=== PATIENT | female | born 1965 | race American Indian/Alaskan Native ===

== ENCOUNTER 2019-01-22 06:44 | Day surgery (SDC) | payer BC, MEDICARE ==
[2019-01-22] MEDS ORDERED: WATER FOR IRRIG STERILE IR ONE (07:20)
--- NOTE | 2019-01-22 07:56 | Anesthesia Day of Surgery ---
Anesthesia Day of Surgery - Day of Surgery Patient Examined: Yes Patient H&P Reviewed: Yes Patient is NPO: Yes Beta Blockers: No Cardiac Clearance: No
--- NOTE | 2019-01-22 07:58 | Anesthesia Consultation ---
Anesthesia Consult and Med Hx Date of service: 01/15/19 - Airway Anesthetic Teeth Evaluation: Good ROM Head & Neck: Adequate Mental/Hyoid Distance: Adequate Mallampati Class: Class III Intubation Access Assessment: Good - Pulmonary Exam CTA: Yes - Cardiac Exam Cardiac Exam: No Murmur - Pre-Operative Health Status ASA Pre-Surgery Classification: ASA3 Proposed Anesthetic Plan: MAC - Pulmonary Hx Asthma: Yes - Hematic Hx Anemia: Yes - Additional Comments Anesthesia Medical History Comments: [place] Disease and received solumedrol this as as per Dr Fontanez
[2019-01-22] MEDS ORDERED: NACL 0.9% 1000 ML 1,000 ML IV SCH (08:00)
[2019-01-22] MEDS ORDERED: DIPRIVAN 10 MG/ML IV ONE (08:20)
[2019-01-22] MEDS ORDERED: XYLOCAINE 2% INFILTRATI ONE (08:20)
[2019-01-22] MEDS ORDERED: VERSED ONE (08:20)
--- NOTE | 2019-01-22 08:34 | History and Physical Report ---
HISTORY OF PRESENT ILLNESS: This is a 54-year-old female with an underlying history of adrenal insufficiency, who is on steroids. She has been having persistent abdominal pain and discomfort and may have an associated peptic ulcer disease. She gives a prior history of maryjane esophagitis, for which she was treated. Because of her GI symptoms, she is to have an EGD done. This case was discussed with her admissions consultant and she had suggested that the patient receive 100 mg of IV Solu-Medrol prior to the procedure, which she has received. ALLERGIES: No known allergies. SOCIAL HISTORY: Denies history of smoking or alcohol use. No cardiac issues and possibly no flu shots. PHYSICAL EXAMINATION: VITAL SIGNS: She is afebrile, blood pressure 104/67, pulse is 65, height is 5 feet 4 inches, weight is 213. HEENT: Shows no JVD. LUNGS: Show reduced breath sounds. CARDIOVASCULAR: Grossly normal. ABDOMEN: Shows epigastric tenderness. Bowel sounds present. EXTREMITIES: No pedal edema. NEUROLOGIC: The patient is otherwise alert and oriented. ASSESSMENT: History of adrenal insufficiency with steroid use, possible peptic ulcer disease, epigastric pain and abdominal pain, prior history of maryjane esophagitis. PLAN: To do an EGD at [facility] on 01/22/2019. JOB# [id number] CHEYENNE/DUSTIN
--- NOTE | 2019-01-22 08:45 | Procedure Note ---
Date of procedure: 01/22/18 Pre-op diagnosis: Abdominal Pain Post-op diagnosis: other (Duodenal Ulcer (second portion)/Gastric Ulcer (antrum)/Gastritis and Gastric Erosion/ Mild, Distal Esophagitis/R/O Celiac Disease) Procedure: EGD with Biopsy Anesthesia: MAC Surgeon: RODGER THOMAS Estimated blood loss: minimal Pathology: list Specimen disposition: to lab Condition: stable Disposition: same day (Treat PPI. Avoid aspirin and NSAID for 5 days and follow up in 1 to 2 weeks ([phone]).)
--- NOTE | 2019-01-22 09:03 | Operative Report ---
PROCEDURE: EGD with biopsy. INDICATIONS: This is a 54-year-old -[place] female with an underlying history of adrenal insufficiency for which she has to take high dose steroids. She has had a prior history of [place] esophagitis on EGD done a little over a year ago. Lately, she has been complaining of epigastric pain and discomfort. EGD was done to assess for the problem. DESCRIPTION OF PROCEDURE: Procedure was done after getting informed consent with MAC anesthesia. Instrument was passed through the hypopharynx into the esophagus, which showed some mild distal esophagitis. The stomach showed an antral ulcer. Photodocumentation was obtained. Biopsy had been done from the ulcer as well as from the gastric antrum and gastric body to rule out for H. pylori and atrophic gastritis. The pylorus was patent. The duodenum in the first portion and second appeared normal. Second part showed a duodenal ulcer, unusual place for an ulcer and photodocumentation and biopsy was obtained from there. Additional biopsy was obtained from the normal part of the second part of the duodenum to rule out for possible celiac disease. There was minimal bleeding from the biopsy sites and no complications with the procedure. ASSESSMENT: Abdominal pain, gastric ulcer, duodenal ulcer in the second portion, mild distal esophagitis, gastritis, and gastric erosion. Again, there was minimal bleeding from the procedure and no complications associated with the procedure. The patient will be asked to avoid aspirin and aspirin-related products for the next few days and follow up in the office in 1-2 weeks' time. Further treatment adjustment will be according to the biopsy findings, the patient will be treated with PPI. Nicole MORTON was in the room throughout the entirety of the procedure. JOB# [id number] CHEYENNE/DUSTIN
[2019-01-22 09:33] VITALS: BP 136/78
== END 2019-01-22 06:45 | disposition home or self-care (01) ==
LOC: GIO 06:44
DX: K29.50 Unspecified chronic gastritis without bleeding (principal); K21.0 Gastro-esophageal reflux disease with esophagitis; B37.81 Candidal esophagitis; K26.9 Duodenal ulcer, unspecified as acute or chronic, without hemorrhage or perforation; K31.89 Other diseases of stomach and duodenum; J45.909 Unspecified asthma, uncomplicated; M06.9 Rheumatoid arthritis, unspecified; D64.9 Anemia, unspecified; Z98.890 Other specified postprocedural states; Z79.82 Long term (current) use of aspirin; Z90.49 Acquired absence of other specified parts of digestive tract; Z90.710 Acquired absence of both cervix and uterus; Z79.899 Other long term (current) drug therapy
CPT/HCPCS: 43239; 82962; 88305; 88342; 96374; J1720; J2250; J2704; J7030

== ENCOUNTER 2019-03-19 09:06 | Day surgery (SDC) | payer BC, MEDICARE ==
--- NOTE | 2019-03-19 10:43 | Anesthesia Day of Surgery ---
Anesthesia Day of Surgery - Day of Surgery Patient Examined: Yes Patient H&P Reviewed: Yes Patient is NPO: Yes
--- NOTE | 2019-03-19 10:48 | Anesthesia Consultation ---
Anesthesia Consult and Med Hx Date of service: 03/19/19 - Airway Anesthetic Teeth Evaluation: Good ROM Head & Neck: Adequate Mental/Hyoid Distance: Adequate Mallampati Class: Class III Intubation Access Assessment: Probably Good - Pre-Operative Health Status ASA Pre-Surgery Classification: ASA3 Proposed Anesthetic Plan: MAC - Pulmonary Hx Asthma: Yes - Cardiovascular System Hx Hypertension: No (hypotension) - Central Nervous System Hx Neuromuscular Disorder: Yes (fibromyalgia, rheumatoid arthritis) Hx Seizures: Yes (last in 2016-controlled with meds) - Gastrointestinal Hx Ulcer: Yes Hx Gastroesophageal Reflux Disease: Yes - Hematic Hx Anemia: Yes - Other Systems Hx Obesity: Yes - Additional Comments Anesthesia Medical History Comments: Addisons Disease, on steroids. Hydrocortisone 100mg [address] Dr[address] Fontanez
[2019-03-19] MEDS ORDERED: NACL 0.9% 1000 ML 1,000 ML IV SCH (11:00)
[2019-03-19] MEDS ORDERED: DIPRIVAN 10 MG/ML IV ONE (11:01)
[2019-03-19] MEDS ORDERED: VERSED ONE (11:01)
[2019-03-19] MEDS ORDERED: XYLOCAINE 1% 20 mL ONE (11:01)
--- NOTE | 2019-03-19 11:29 | Procedure Note ---
Date of procedure: 03/19/19 Pre-op diagnosis: H/O Gastric and Duodenal Ulcer/ H/O [place]'s Disease Post-op diagnosis: other (Persistent Gastric Ulcer/ Healed Duodenal Ulcer/ Gastoparesis/Moderate,Distal Ersoive Esophagitis/ Patent Pylorus) Procedure: EGD with Biopsy Anesthesia: MAC Surgeon: RODGER THOMAS Estimated blood loss: minimal Pathology: list Specimen disposition: to lab Condition: stable Disposition: same day (Avoid aspirin and NSAID for 5 days. Treat with PPI and Reglan and follow up in 1 to 2 weeks ([phone]).)
[2019-03-19 12:01] VITALS: BP 119/67
--- NOTE | 2019-04-13 11:30 | Operative Report ---
PROCEDURE: EGD with biopsy INDICATIONS: This is a 54-year-old -[place] female who has had a history of partial bowel obstruction that has been treated by conservative measures. 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 She had been having some abdominal pain, prior history of gastric ulcer, underwent an EGD because of persistence of abdominal pain and to see whether the ulcer was still persisting. This was done at [facility] on 03/19/2019 with assistance of Anesthesia and the GI lab team. DESCRIPTION OF PROCEDURE: Instrument was passed through the hypopharynx into the esophagus, which showed some moderate erosive esophagitis. There was some evidence of gastroparesis. The pylorus was patent. The duodenum showed normal mucosa. Previously, the patient had a duodenal ulcer, which appears to have healed. The stomach, however, showed persistence of gastric ulcer, which is smaller than before, but is persisting because of the usage of high dosage of steroids. Biopsy was done from the gastric antrum as well as from the esophagus to assess for gastric antrum as well as the gastric body to assess for the ulcer to see if there is any associated H. pylori and from the distal esophagus to assess the severity of the erosive esophagitis. There was minimal bleeding associated with the procedure. No complications associated with the procedure. ASSESSMENT: History of gastric ulcer and duodenal ulcer. The duodenal ulcer is healed. There is persistence of the gastric ulcer, it was smaller than before, history of [place]'s disease with the usage of high dosage of steroids, moderate erosive esophagitis, gastroparesis, patent pylorus. PLAN: Plan is to treat the patient with PPI and Reglan. Avoid aspirin and aspirin-related products. The patient is to follow up in the office in 1-2 weeks' time. Procedure was done with assistance of the GI lab team, which included the GI finishing lab technician as well as a tech including the distance learning technician. JOB# [id number] CHEYENNE/DUSTIN
== END 2019-03-19 09:07 | disposition home or self-care (01) ==
LOC: GIO 09:06
DX: K29.50 Unspecified chronic gastritis without bleeding (principal); K21.0 Gastro-esophageal reflux disease with esophagitis; K31.89 Other diseases of stomach and duodenum; K52.9 Noninfective gastroenteritis and colitis, unspecified; I11.0 Hypertensive heart disease with heart failure; I50.9 Heart failure, unspecified; E66.9 Obesity, unspecified; M19.90 Unspecified osteoarthritis, unspecified site; Z90.710 Acquired absence of both cervix and uterus; Z79.899 Other long term (current) drug therapy; Z79.82 Long term (current) use of aspirin; Z90.49 Acquired absence of other specified parts of digestive tract; Z68.36 Body mass index [BMI] 36.0-36.9, adult; Z86.2 Personal history of diseases of the blood and blood-forming organs and certain disorders involving the immune mechanism; Z98.890 Other specified postprocedural states
CPT/HCPCS: 43239; 82962; 88305; 88341; 88342; J1720; J2250; J2704; J7030

== ENCOUNTER 2020-03-07 06:13 | Day surgery (SDC) | payer BC, MEDICARE ==
[~2020-03-07 06:13] MED LIST: SODIUM CHLORIDE 0.9% 1000 ML 1,000 ML IV SCH
[2020-03-07] MEDS ORDERED: LIDOCAINE MPF (2%) 20 MG/1 ML VIAL 5 ML ONE (07:00)
[2020-03-07] MEDS ORDERED: WATER FOR IRRIG STERILE 250 ML BOTTLE IR ONE (07:19)
[2020-03-07] MEDS ORDERED: propofoL 200 MG/20 ML VIAL IV ONE ×2 (08:24)
[2020-03-07 09:13] VITALS: BP 126/72
== END 2020-03-07 06:14 | disposition home or self-care (01) ==
LOC: GIO 06:13
DX: K26.9 Duodenal ulcer, unspecified as acute or chronic, without hemorrhage or perforation (principal); K29.50 Unspecified chronic gastritis without bleeding; R10.9 Unspecified abdominal pain; K59.09 Other constipation; K21.0 Gastro-esophageal reflux disease with esophagitis; I11.0 Hypertensive heart disease with heart failure; I50.9 Heart failure, unspecified; E11.9 Type 2 diabetes mellitus without complications; J45.909 Unspecified asthma, uncomplicated; E66.9 Obesity, unspecified; D64.9 Anemia, unspecified; M06.9 Rheumatoid arthritis, unspecified; Z96.653 Presence of artificial knee joint, bilateral; Z79.899 Other long term (current) drug therapy; Z90.49 Acquired absence of other specified parts of digestive tract; Z68.37 Body mass index [BMI] 37.0-37.9, adult; Z90.710 Acquired absence of both cervix and uterus; Z98.890 Other specified postprocedural states; Z86.2 Personal history of diseases of the blood and blood-forming organs and certain disorders involving the immune mechanism
CPT/HCPCS: 43239; 82962; 88305; 88342; J2704; J7030